=== PATIENT | male | born 1990 | race African-American/Black ===

== ENCOUNTER 2019-08-25 09:53 | Emergency (ER) | payer SELFPAY ==
[~2019-08-25] VITALS: Ht 170.2 cm; Wt 74.8 kg
[~2019-08-25 09:53] MED LIST: IBUPROFEN600 MG PO; NKM; VICODIN 5-5001 EACH PO
[2019-08-25 09:59] VITALS: BP 119/79
--- NOTE | 2019-08-25 10:09 | NUR ---
ED Nurse Note: PT WALKED IN DUE TO RECTAL PAIN X 2 DAYS AND WORSE IN SITTING POSITION. DENEIS BLEEDING OR TRAUMA. AAO X4 AND AMBULATES WITH STEADY GAIT.
--- NOTE | 2019-08-25 10:44 | Emergency Room Report ---
History of Present Illness General Chief Complaint: Pain Source: Patient Present Illness HPI 29-year-old male presenting with rectal pain. Symptoms started 2 to 3 days ago. Reports it as pressure-like sensation inside the rectum. Last bowel movement this morning. Not associated with abdominal pain, constipation, rectal bleeding, hemorrhoids. Patient has not tried any medications for symptom control. Patient denies any anal intercourse or anal foreign bodies. He denies any history of sexually transmitted infections. Allergies: Coded Allergies: No Known Allergies (Unverified , 08/25/19) Nursing Documentation-[facility] Past Medical History: No Stated History Review of Systems Constitutional: Denies: chills, fever Respiratory: Denies: cough, shortness of breath Cardiovascular: Denies: chest pain, palpitations Gastrointestinal: Denies: diarrhea, vomiting Genitourinary: Denies: hematuria, pain Musculoskeletal: Denies: joint swelling Skin: Denies: rash, lesions Neurological: Denies: headache, dizziness Physical Exam Vital Signs Date Time Temp Pulse Resp B/P (MAP) Pulse Ox O2 Delivery O2 Flow Rate FiO2 08/25/19 09:59 98.1 16 119/79 99 Room Air 08/25/19 09:59 92 Sp02 EP Interpretation: reviewed General Appearance: well appearing, no apparent distress, non-toxic Head: normocephalic, atraumatic Eyes: bilateral eye normal inspection ENT: hearing grossly normal, EOM grossly intact, moist mucus membranes Neck: supple Respiratory: lungs clear, normal breath sounds, no respiratory distress, speaking full sentences Cardiovascular #1: regular rate, rhythm, normal capillary refill Cardiovascular #2: 2+ radial (R), 2+ radial (L) Gastrointestinal: soft, non-distended Rectal: normal rectal tone, tenderness, other - 0.5 cm mass palpated superior to the rectum. Musculoskeletal: moves extm spontaneously, no lower extremity edema Neurologic: grossly normal Psychiatric: mood/affect normal Skin: warm/dry, normal turgor Medical Decision Making ER Course 29-year-old male presenting with rectal pain and pressure. Found to have 0.5 cm mass superior inside rectal vault. Discussed with patient this could be hemorrhoids versus rectal abscess. Patient symptom started to 3 days ago and is exquisitely painful. As such discussed to perform CT scan to further evaluate if this is abscess perirectal. Patient does not want to stay for further testing or work-up. Patient would like to follow-up as an outpatient. Recommended clinics for him to see and be further evaluated. Patient advised to return to emergency room if any new symptoms. Last Vital Signs Date Time Temp Pulse Resp B/P (MAP) Pulse Ox O2 Delivery O2 Flow Rate FiO2 08/25/19 09:59 98.1 92 16 119/79 (92) 99 Room Air Disposition: AGAINST MEDICAL ADVICE Referrals: [facility] Additional Instructions: Please return to emergency room if you have any worsening pain or symptoms Dg Grant M.D. Aug 25, 2019 10:44
[2019-08-25 11:10] VITALS: BP 125/79
--- NOTE | 2019-08-25 11:10 | NUR ---
ED Nurse Note: PT LEFT AMA FOR PERSONAL REASON. DR DE LA TORRE EXPLAINED TO PT THAT HE CAN COME BACK ANYTIME OR FF UP WITH A PRIMARY MD. PT VERBALIZED UNDERSTANDING. AAO X4 AND AMBULATORY.
--- NOTE | 2019-08-25 11:10 | NUR ---
Note marisol in EDM - 08/25/19 at 1119 by STEPHANIE ED Nurse Note: PT LEFT AMA FOR PERSONAL REASON. DR DE LA TORRE EXPLAINED TO PT THAT HE CAN COME BACK ANYTIME OR FF UP WITH A PRIMAYR . PT VERBALIZED UNDESRATDNING. AAO X4 AND AMBULATORY.
== END 2019-08-25 11:10 | disposition left against medical advice (07) ==
LOC: EMR 11:01
DX: K62.89 Other specified diseases of anus and rectum (principal)
CPT/HCPCS: 99282